=== PATIENT | female | born 1985 | race Two or more races ===

== ENCOUNTER 2018-07-02 20:08 | Emergency (ER) | payer MEDICAID ==
[~2018-07-02] VITALS: Ht 162.6 cm; Wt 74.8 kg
[2018-07-02] MEDS ORDERED: Albuterol ud Inhalation HHN ONE (20:30)
[2018-07-02] MEDS ORDERED: Morphine Sulfate 4mg/ml Inj (IV USE ONLY) IVP ONE (20:30)
[2018-07-02 20:40] VITALS: BP 129/80
--- NOTE | 2018-07-02 20:40 | NUR ---
ER Nurse Note: Pt came from home c/o abd pain with n/v/d. Pt stated she has pain from her stomach to her bladder, 7/10 pain. Pt vomited in triage; pt stated last BM was 07/02 prior to admission. Pt described diarrhea as yellow colored and watery. Pt stated she threw up every thing she eats. ERMD at pt side; will continue to [facility].
[2018-07-02 21:01] LABS: BASOPHILS % (AUTO) 0.5 % (0.0-2.0); EOSINOPHILS % (AUTO) 0.1 % (0.0-3.0); HEMATOCRIT 46.5 % (37.0-47.0); HEMOGLOBIN 16.5 G/DL (12.0-16.0); LYMPHOCYTES % (AUTO) 14.9 % (20.0-45.0); MEAN CORPUSCULAR VOLUME 86 FL (80-99); MONOCYTES % (AUTO) 4.5 % (1.0-10.0); NEUTROPHILS % (AUTO) 80.1 % (45.0-75.0); PLATELET COUNT 360 K/UL (150-450); RED BLOOD COUNT 5.43 M/UL (4.20-5.40); RED CELL DISTRIBUTION WIDTH 10.6 % (11.6-14.8); WHITE BLOOD COUNT 13.2 K/UL (4.8-10.8)
[2018-07-02 21:18] LABS: INR 1.2 (0.9-1.1)
[2018-07-02 21:36] LABS: ANION GAP 14 mmol/L (5-15); BLOOD UREA NITROGEN 8 mg/dL (7-18); CALCIUM 9.7 MG/DL (8.5-10.1); CARBON DIOXIDE 25 MMOL/L (21-32); CHLORIDE 105 MMOL/L (98-107); CREATININE 0.9 MG/DL (0.55-1.30); POTASSIUM 3.1 MMOL/L (3.5-5.1); SODIUM 144 MMOL/L (136-145)
[2018-07-02 21:41] LABS: ALANINE AMINOTRANSFERASE 30 U/L (12-78); ALBUMIN 4.5 G/DL (3.4-5.0); ALBUMIN/GLOBULIN RATIO 1.1 (1.0-2.7); ALKALINE PHOSPHATASE 112 U/L (46-116); ASPARTATE AMINO TRANSFERASE 16 U/L (15-37); BILIRUBIN,TOTAL 0.8 MG/DL (0.2-1.0)
[2018-07-02] MEDS ORDERED: Metoclopramide 10mg/2ml Inj IVP ONE (21:45)
[2018-07-02] MEDS ORDERED: DiphenhydrAMINE 50mg/ml Inj IVP ONE (21:45)
--- NOTE | 2018-07-02 22:08 | Emergency Room Report ---
History of Present Illness General Chief Complaint: Abdominal Pain Source: Patient (Deniz Farias MD) Present Illness HPI Patient presents with a week of nausea vomiting and diarrhea. She can't keep any of liquids down for the last few days. She's also been unable to sleep. She has not been vomiting any blood or coffee grounds. She has some crampy abdominal pain. The diarrhea has been watery and yellow without any blood. She denies any fevers or chills. She denies having any sick contacts or unusual foods. She feels dehydrated. She has an IUD and her periods are irregular. The last period was in April. She doesn't believe she is at this time. No chest pain, palpitations, dysuria, shortness of breath, depression, visual changes, headache. (Deniz Farias MD) Allergies: Coded Allergies: No Known Allergies (Unverified , 07/02/18) Patient History Past Medical History: see triage record Social History: Reports: alcohol use - last week, drug use - thc; Denies: smoking Social History Narrative with sig other, not working at this time Now: No Reviewed Nursing Documentation: PMH: Agreed; PSxH: Agreed (Deniz Farias MD) Nursing Documentation-PMH Past Medical History: No Stated History (Deniz Farias MD) Review of Systems All Other Systems: negative except mentioned in HPI (Deniz Farias MD) Physical Exam Vital Signs Date Time Temp Pulse Resp B/P (MAP) Pulse Ox O2 Delivery O2 Flow Rate FiO2 07/02/18 20:12 98.8 110 24 129/80 98 Room Air 07/02/18 20:59 21 Sp02 EP Interpretation: reviewed, normal General Appearance: well appearing, no apparent distress, GCS 15 Head: normocephalic Eyes: bilateral eye normal inspection, bilateral eye PERRL, bilateral eye EOMI ENT: moist mucus membranes Neck: supple Respiratory: lungs clear, normal breath sounds Cardiovascular #1: regular rate, rhythm Cardiovascular #2: 2+ radial (R) Gastrointestinal: normal inspection, normal bowel sounds, non tender, soft, non -distended Genitourinary: no CVA tenderness Musculoskeletal: back normal, gait/station normal, normal range of motion Neurologic: alert, oriented x3, grossly normal Psychiatric: mood/affect normal Skin: normal inspection, warm/dry (Deniz Farias MD) Medical Decision Making Diagnostic Impression: Primary Impression: Gastroenteritis Additional Impression: Dehydration ER Course Patient presents with nausea vomiting diarrhea unable to keep down fluids. Differential includes bacterial or viral gastroenteritis, colitis, inflammatory bowel disease, amongst others. Based on the lack of fever and blood in the stool invasive diarrhea is less likely and antibiotics are probably not indicated at this time. The patient appears dehydrated and will receive IV hydration, Zofran, Pepcid and morphine. Evaluation will be with labs. Serum is ordered as she doesn't feel that she needs to urinate. No imaging indicated based on exam and history. Labs with elevated white counts and evidence of dehydration. is negative. Patient somewhat improved but still nauseated. Second liter bolus is given and Reglan and Benadryl. The patient is tolerating ice chips at this time. Abdomen is still soft. Tachycardia resolved. No diarrhea in the emergency department. Signed out to Dr. Fried to review urine and re-evaluate. Laboratory Tests Test 07/02/18 20:45 07/02/18 23:27 White Blood Count 13.2 K/UL (4.8-10.8) H Red Blood Count 5.43 M/UL (4.20-5.40) H Hemoglobin 16.5 G/DL (12.0-16.0) H Hematocrit 46.5 % (37.0-47.0) Mean Corpuscular Volume 86 FL (80-99) Mean Corpuscular Hemoglobin 30.4 PG (27.0-31.0) Mean Corpuscular Hemoglobin Concent 35.6 G/DL (32.0-36.0) Red Cell Distribution Width 10.6 % (11.6-14.8) L Platelet Count 360 K/UL (150-450) Mean Platelet Volume 5.9 FL (6.5-10.1) L Neutrophils (%) (Auto) 80.1 % (45.0-75.0) H Lymphocytes (%) (Auto) 14.9 % (20.0-45.0) L Monocytes (%) (Auto) 4.5 % (1.0-10.0) Eosinophils (%) (Auto) 0.1 % (0.0-3.0) Basophils (%) (Auto) 0.5 % (0.0-2.0) Prothrombin Time 12.5 SEC (9.30-11.50) H Prothrombin Time INR 1.2 (0.9-1.1) H PTT 25 SEC (23-33) Sodium Level 144 MMOL/L (136-145) Potassium Level 3.1 MMOL/L (3.5-5.1) L Chloride Level 105 MMOL/L (98-107) Carbon Dioxide Level 25 MMOL/L (21-32) Anion Gap 14 mmol/L (5-15) Blood Urea Nitrogen 8 mg/dL (7-18) Creatinine 0.9 MG/DL (0.55-1.30) Estimate Glomerular Filtration Rate > 60 mL/min (>60) Glucose Level 127 MG/DL (74-106) H Calcium Level 9.7 MG/DL (8.5-10.1) Total Bilirubin 0.8 MG/DL (0.2-1.0) Aspartate Amino Transferase (AST) 16 U/L (15-37) Alanine Aminotransferase (ALT) 30 U/L (12-78) Alkaline Phosphatase 112 U/L (46-116) Total Protein 8.5 G/DL (6.4-8.2) H Albumin 4.5 G/DL (3.4-5.0) Globulin 4.0 g/dL Albumin/Globulin Ratio 1.1 (1.0-2.7) Lipase 328 U/L (73-393) Human Chorionic Gonadotropin, Qual Negative (NEGATIVE) Urine Color Yellow Urine Appearance Clear Urine pH 6 (4.5-8.0) Urine Specific [place] 1.020 (1.005-1.035) Urine Protein 2+ (NEGATIVE) H Urine Glucose (UA) Negative (NEGATIVE) Urine Ketones 4+ (NEGATIVE) H Urine Blood 1+ (NEGATIVE) H Urine Nitrite Negative (NEGATIVE) Urine Bilirubin Negative (NEGATIVE) Urine Urobilinogen 1 MG/DL (0.0-1.0) H Urine Leukocyte Esterase 1+ (NEGATIVE) H Urine RBC 0-2 /HPF (0 - 2) Urine WBC 2-4 /HPF (0 - 2) Urine Squamous Epithelial Cells Few /LPF (NONE/OCC) Urine Bacteria Occasional /HPF (NONE) Urine Mucus Few /LPF (NONE/OCC) H Urine Opiates Screen Positive (NEGATIVE) H Urine Barbiturates Screen Negative (NEGATIVE) Phencyclidine (PCP) Screen Negative (NEGATIVE) Urine Amphetamines Screen Negative (NEGATIVE) Urine Benzodiazepines Screen Positive (NEGATIVE) H Urine Cocaine Screen Negative (NEGATIVE) Urine Marijuana (THC) Screen Positive (NEGATIVE) H (Deniz Farias MD) ER Course She signed out to me ending urinalysis. Urine showed ketones but no evidence of infection. Patient felt better. We'll discharge home. (Elias Fried MD) Rhythm Strip Diag. Results EP Interpretation: yes Rhythm: NSR, no PVC's, no ectopy (Deniz Farias MD) Last Vital Signs Date Time Temp Pulse Resp B/P (MAP) Pulse Ox O2 Delivery O2 Flow Rate FiO2 07/03/18 00:00 98.6 76 18 124/76 100 Room Air 07/02/18 23:34 21 Status: improved (Deniz Farias MD) Status: improved (Elias Fried MD) Disposition: HOME, SELF-CARE Condition: Improved Scripts Promethazine Hcl (PHENADOZ) 25 Mg Supp.rect 25 MG RC Q8HR PRN for nausea and vomiting, #3 SUPP 1 Refill Prov: Deniz Farias MD 07/02/18 Acetaminophen (Tylenol) 325 Mg Tablet 650 MG ORAL Q6H PRN for Prn Pain/Headache/Temp > 101, #20 TAB 0 Refills Prov: Deniz Farias MD 07/02/18 Ondansetron Odt* (ZOFRAN ODT*) 4 Mg Tab.rapdis 4 MG BC EVERY 8 HOURS, #6 TAB 1 Refill Prov: Deniz Farias MD 07/02/18 Referrals: NON PHYSICIAN (PCP) Deniz Farias MD Jul 02, 2018 22:08 Elias Fried MD Jul 02, 2018 23:50
[2018-07-02] MEDS ORDERED: ONDANSETRON ODT4 MG BC (22:13)
[2018-07-02] MEDS ORDERED: TYLENOL325 MG ORAL (22:13)
[2018-07-02] MEDS ORDERED: PHENADOZ25 MG RC (22:13)
--- NOTE | 2018-07-02 22:20 | NUR ---
ER Nurse Note: Pt stated she still had nausea and pain; ERMD aware. New orders have been placed and completed. Dr Segura is aware urine has not been collected. All labs except urine sent, meds given per ERMD orders. Will continue to [facility].
--- NOTE | 2018-07-02 23:30 | NUR ---
ER Nurse Note: Urine sent; awaiting results. Pt calm, cooperative, no signs of distress. No n/v/d on shift. Will continue to [facility].
[2018-07-02 23:34] VITALS: BP 134/82
[2018-07-02 23:41] LABS: APPEARANCE,URINE CLEAR; BILIRUBIN, URINE NEGATIVE (NEGATIVE); COLOR,URINE YELLOW; GLUCOSE, URINE (UA) NEGATIVE (NEGATIVE); KETONES,URINE 4+ (NEGATIVE); LEUKOCYTE ESTERASE ,URINE 1+ (NEGATIVE); NITRITE,URINE NEGATIVE (NEGATIVE); PH,URINE 6 (4.5-8.0); PROTEIN,URINE 2+ (NEGATIVE); UROBILINOGEN,URINE 1 MG/DL (0.0-1.0)
[2018-07-03] VITALS: BP 124/76
--- NOTE | 2018-07-03 | NUR ---
ED Nurse: Pt seen, treated, medically cleared by ER MD for discharge. Discharge instructions and prescription given with repeat verbalization by pt. Instructed pt to follow up with primary care physican within one week. ID band/IV removed, site clean and bandaged. Pt is AAO x4, VSS, no signs of distress, ambulatory and left with all belongings.
== END 2018-07-03 | disposition home or self-care (01) ==
LOC: EMR 20:32
DX: K52.9 Noninfective gastroenteritis and colitis, unspecified (principal); E86.0 Dehydration; Z97.5 Presence of (intrauterine) contraceptive device
CPT/HCPCS: 36415; 80053; 80307; 81003; 83690; 84703; 85025; 85610; 85730; 94640; 96361; 96374; 96375; 99284; J1200; J2270; J2405; J2765; S0028